=== PATIENT | male | born 1945 | race Caucasian/White ===

== ENCOUNTER 2016-12-15 18:02 | Inpatient (IN) | payer BC, MEDICARE, OTHER ==
[2016-12-15] MEDS ORDERED: HYDROmorphone 0.5 MG/0.5 ML Syringe IVPUSH ONE (18:17)
[2016-12-15] MEDS ORDERED: Sodium Chloride 0.9% 1,000 ML IV SCH (18:30)
--- NOTE | 2016-12-15 18:33 | EDM.PDOC ---
<Pat Thakkar - Last Filed: 12/15/16 18:27> ED HPI GI/ABDOMINAL - General Chief Complaint: Chest Pain Stated Complaint: MED VIA TRI-C Time Seen by Provider: 12/15/16 18:27 Source: Reports: Patient, EMS notes reviewed, Family History Limitations: Reports: No limitations - History of Present Illness INITIAL COMMENTS - FREE TEXT/NARRATIVE: pt arrived with a episode of being very diaphoretic and having a bp in the 90s. He gave a history of a fall 4 days ago and he landed on his left rib cage. He has pain in his lateral lower left ribs. He has been having pain in the ribs. He states today he started having alot more pain and he got very sweaty and became nauseated. Timing/Duration: Reports: Hour(s):, Getting worse, Other ( sweaty and left sided pain. ) Location: [facility] Quality: Reports: stabbing, throbbing Associated Symptoms: Reports: chest pain, nausea/vomiting, other ( Pt had pain in the left chest where he hit the table with his side. ) - Related Data Allergies/ADRs: Allergies Allergy/AdvReac Type Severity Reaction Status Date / Time ezetimibe [From Zetia] Allergy Intermediate Anxiety Verified 08/19/14 19:30 amoxicillin Allergy Nausea Verified 12/15/16 18:21 Jgehyoh-Qon-Tsd Reductase Allergy Muscle Verified 12/15/16 18:21 Inhibitor Weakness Home Meds: Home Meds Aspirin [[place] Aspirin] 81 mg PO DAILY 11/20/13 [History] Metoprolol Tartrate 12.5 mg PO BID 11/20/13 [History] Multivitamin [Multi-Vitamin Daily] 0.5 each PO BID 11/20/13 [History] Naproxen Sodium 220 mg PO BID 11/20/13 [History] Rosuvastatin [Crestor] 1 tab PO BID 11/20/13 [History] Sildenafil Citrate [Viagra] 1 tab PO ASDIRECTED PRN 11/20/13 [History] Clopidogrel Bisulfate [Plavix] 75 mg PO DAILY 12/15/16 [History] Pantoprazole [Protonix] 40 mg PO DAILY 12/15/16 [History] Ranitidine [Zantac] 300 mg PO BID 12/15/16 [History] Social & Family History - Tobacco Use Smoking Status *Q: Unknown Ever Smoked Second Hand Smoke Exposure: No - Alcohol Use Days Per Week of Alcohol Use: 0 Number of Drinks Per Day: 1 Total Drinks Per Week: 0 - Recreational Drug Use Recreational Drug Use: No ED ROS GENERAL - Review of Systems Review Of Systems: See Below Constitutional: Reports: diaphoresis HEENT: Reports: No symptoms Respiratory: Reports: other (pain in his left chest) Cardiovascular: Reports: Blood pressure problem, Other (Pt had a low pressure when the ambulance arrived. He also had o2 sats in the mid 80s. ) Endocrine: Reports: no symptoms GI/Abdominal: Reports: Abdominal pain, Nausea, Vomiting : Reports: no symptoms Musculoskeletal: Reports: other (pain in the left rib with palpation. Pt also has pain in the left upper abdoman. ) Skin: Reports: no symptoms ED EXAM, GI/ABD - Physical Exam Exam: See Below Text/Narrative:: pt states he became very sweaty and he had pain in the ribs on the left side. He did not have ny other chest pain. This was different than when he has had heart pain in the past. He was nauseated and he did vomit. Exam Limited By: No limitations General Appearance: alert, moderate distress, other (pt was quite pale in appearance. ) Eyes: bilateral: normal appearance, EOMI Ears: normal TMs Nose: normal inspection Throat/Mouth: Normal inspection Head: atraumatic Neck: normal inspection Respiratory/Chest: other (pt is tender in the left chest when his ribs are palpated. ) Cardiovascular: regular rate, rhythm, other (rate is in the 60s. ) GI/Abdominal: other (pt is tender in the left upper abdoman. ) Rectal (Males) Exam: Deferred Back Exam: normal inspection Extremities: normal inspection Neurological: alert, oriented, other (pt hd a previous stroke in . ) Psychiatric: normal affect, anxious Course - Vital Signs Last Recorded V/S: Last Vital Signs Temp 35.9 C 12/15/16 18:08 Pulse 58 L 12/15/16 19:48 Resp 14 12/15/16 19:48 BP 110/66 12/15/16 19:48 Pulse Ox 93 L 12/15/16 19:48 - Orders/Labs/Meds Orders: Active Orders 24 hr Category Date Time Status Chest 1V Frontal [CR] Stat Exams 12/15/16 18:03 Taken Chest Abdomen Pelvis w Cont [CT] Stat Exams 12/15/16 18:18 Taken UA W/MICROSCOPIC [URIN] Urgent Lab 12/15/16 18:02 Uncollected Sodium Chloride 0.9% [Normal Saline] 1,000 ml Med 12/15/16 18:30 Active IV ASDIRECTED Sodium Chloride 0.9% [Saline Flush] Med 12/15/16 18:41 Active 10 ml FLUSH ONETIME PRN Medication Orders Sodium Chloride (Normal Saline) 1,000 mls @ 400 mls/hr IV ASDIRECTED JC Last Admin: 12/15/16 19:49 Dose: 400 mls/hr Sodium Chloride (Saline Flush) 10 ml FLUSH ONETIME PRN PRN Reason: PER RADIOLOGY PROTOCOL Last Admin: 12/15/16 18:58 Dose: 10 ml Labs: Laboratory Tests 12/15/16 12/15/16 12/15/16 Range/Units 18:06 18:06 18:06 WBC 16.4 H (4.5-11.0) K/uL RBC 3.73 L (4.30-5.90) M/uL Hgb 11.7 L D (12.0-15.0) g/dL Hct 35.4 L (40.0-54.0) % MCV 95 (80-98) fL MCH 31 (27-31) pg MCHC 33 (32-36) % Plt Count 220 (150-400) K/uL Neut % (Auto) 71 H (36-66) % Lymph % (Auto) 18 L (24-44) % [place]er % (Auto) 9 H (2-6) % Eos % (Auto) 3 (2-4) % Baso % (Auto) 0 (0-1) % Sodium 141 (140-148) mmol/L Potassium 4.3 (3.6-5.2) mmol/L Chloride 106 (100-108) mmol/L Carbon Dioxide 28 (21-32) mmol/L Anion Gap 6.8 (5.0-14.0) mmol/L BUN 21 H (7-18) mg/dL Creatinine 1.4 H (0.8-1.3) mg/dL Est Cr Clr Drug Dosing 47.50 mL/min Estimated GFR (MDRD) 50 L (>60) Glucose 150 H (74-106) mg/dL Calcium 8.2 L (8.5-10.1) mg/dL Total Bilirubin 0.3 (0.2-1.0) mg/dL AST 28 (15-37) U/L ALT 33 (12-78) U/L Alkaline Phosphatase 54 (46-116) U/L Creatine Kinase (39-308) U/L Troponin I 0.047 (0.000-0.056) ng/mL Total Protein 6.4 (6.4-8.2) g/dL Albumin 3.7 (3.4-5.0) g/dL Globulin 2.7 (2.3-3.5) g/dL Albumin/Globulin Ratio 1.4 (1.2-2.2) 12/15/16 Range/Units 18:06 WBC (4.5-11.0) K/uL RBC (4.30-5.90) M/uL Hgb (12.0-15.0) g/dL Hct (40.0-54.0) % MCV (80-98) fL MCH (27-31) pg MCHC (32-36) % Plt Count (150-400) K/uL Neut % (Auto) (36-66) % Lymph % (Auto) (24-44) % Wagoner % (Auto) (2-6) % Eos % (Auto) (2-4) % Baso % (Auto) (0-1) % Sodium (140-148) mmol/L Potassium (3.6-5.2) mmol/L Chloride (100-108) mmol/L Carbon Dioxide (21-32) mmol/L Anion Gap (5.0-14.0) mmol/L BUN (7-18) mg/dL Creatinine (0.8-1.3) mg/dL Est Cr Clr Drug Dosing mL/min Estimated GFR (MDRD) (>60) Glucose (74-106) mg/dL Calcium (8.5-10.1) mg/dL Total Bilirubin (0.2-1.0) mg/dL AST (15-37) U/L ALT (12-78) U/L Alkaline Phosphatase (46-116) U/L Creatine Kinase 216 (39-308) U/L Troponin I (0.000-0.056) ng/mL Total Protein (6.4-8.2) g/dL Albumin (3.4-5.0) g/dL Globulin (2.3-3.5) g/dL Albumin/Globulin Ratio (1.2-2.2) Meds: Medications Generic Name Dose Route Start Last Admin Trade Name Freq PRN Reason Stop Dose Admin Sodium Chloride 1,000 mls @ 400 mls/hr 12/15/16 18:30 12/15/16 19:49 Normal Saline IV 400 mls/hr ASDIRECTED CJ Administration Sodium Chloride 10 ml 12/15/16 18:41 12/15/16 18:58 Saline Flush FLUSH 10 ml ONETIME PRN Administration PER RADIOLOGY PROTOCOL Discontinued Medications Generic Name Dose Route Start Last Admin Trade Name Freq PRN Reason Stop Dose Admin Hydromorphone HCl 0.5 mg 12/15/16 18:17 Dilaudid IVPUSH 12/15/16 18:18 ONETIME ONE Sodium Chloride 80 mls @ 3 mls/sec 12/15/16 18:41 12/15/16 18:58 Normal Saline IV 12/15/16 18:42 3 mls/sec ONETIME ONE Administration Iopamidol 100 ml 12/15/16 18:41 12/15/16 18:58 Isovue-300 (61%) IV 12/15/16 18:42 100 ml . DIRECTED PRN Administration RADIOLOGY EXAM - Re-Assessments/Exams Free Text/Narrative Re-Assessment/Exam: 12/15/16 18:40 ekg is unchanged from his old ekg. His trop is .047. His hg is 11.6. He continues to have more abdomanal concerns. 12/15/16 18:42 Departure - Departure Disposition: Admitted As Inpatient 67 Clinical Impression: Moderate laceration of spleen Forms: ED Department Discharge <Damir Grajeda - Last Filed: 12/15/16 20:04> Course - Re-Assessments/Exams Free Text/Narrative Re-Assessment/Exam: 12/15/16 19:57 This patient was received from Dr. Thakkar at approximately 1830. He fell 5 days ago in a restaurant when he tripped he fell against a table hit his lower chest against the table. Tonight he had an episode where he became nauseated and diaphoretic. He thought it might be his heart. He wound up taking some nitroglycerin. He had an episode where he seemed to pass out. EMS gave him some fluids and brought his pressures up. Dr. Thakkar noted that he had a tender left upper quadrant. She suspects a splenic rupture. CT was done of the chest and abdomen which showed a splenic laceration there is some hemoperitoneum there is a pseudoaneurysm or extravasation from the spleen and that her some blood around the liver. The patient has remained hemodynamically stable though blood pressure is a little bit low. I spoke with Dr. Melendez the surgeon and he will be admitted to his service for close observation. We'll type and cross him for 2 units of packed cells. Departure - Departure Time of Disposition: 20:02 Condition: fair
[2016-12-15] MEDS ORDERED: Sodium Chloride 0.9% 80 ML IV ONE (18:41)
[2016-12-15] MEDS ORDERED: Iopamidol 612 MG/ML 100 ML Bottle IV PRN (18:41)
[2016-12-15] MEDS: Sodium Chloride 0.9% 10 ML Syringe FLUSH PRN ×2 (18:58→20:01)
[2016-12-15] MEDS ORDERED: Naloxone 0.4 MG/ML SDV IVPUSH PRN (22:06)
[2016-12-15] MEDS ORDERED: Dextrose 5%-Lactated Ringers 1,000 ML IV SCH (22:15)
[2016-12-15] MEDS: HYDROmorphone/Normal Saline 15 MG/30 ML PCA IV PRN (22:17)
[2016-12-15] MEDS: Ondansetron 4 MG/2 ML SDV IVPUSH PRN (22:18)
[2016-12-15] MEDS ORDERED: Lactated Ringers 500 ML IV ONE (22:45)
[2016-12-15] MEDS ORDERED: Rocuronium 50 MG/5 ML Vial ONE (23:09)
[2016-12-15] MEDS ORDERED: fentaNYL 250 MCG/5 ML SDV ONE (23:09)
[2016-12-15] MEDS ORDERED: Dexamethasone 4 MG/ML SDV ONE (23:09)
[2016-12-15] MEDS ORDERED: Propofol 200 MG/20 ML SDV ONE (23:09)
[2016-12-15] MEDS ORDERED: Ondansetron 4 MG/2 ML SDV ONE (23:09)
[2016-12-15] MEDS ORDERED: Neostigmine Methylsulfate 1 MG/ML 5 ML Syringe ONE (23:09)
[2016-12-15] MEDS ORDERED: Succinylcholine/Normal Saline 200 MG/10 ML Syringe ONE (23:09)
[2016-12-15] MEDS ORDERED: ceFAZolin 1 GM Vial ONE (23:45)
[2016-12-15] MEDS ORDERED: ePHEDrine 50 MG/ML SDV ONE (23:50)
[2016-12-15] MEDS ORDERED: Sodium Chloride 0.9% 10 ML ONE (23:50)
[2016-12-16] MEDS ORDERED: Lactated Ringers 1,000 ML ONE ×2 (00:14)
[2016-12-16] MEDS ORDERED: hydrOXYzine HCl 50 MG/ML SDV IM ONE (01:35)
[2016-12-16] MEDS ORDERED: Pantoprazole 40 MG Vial IV SCH (02:00)
[2016-12-16] MEDS ORDERED: Dextrose 5%-Lactated Ringers 1,000 ML IV SCH (02:30)
[2016-12-16] MEDS ORDERED: ceFAZolin 2 GM in Premix Bag 1 BAG IV SCH (03:00)
[2016-12-16] MEDS ORDERED: ceFAZolin 2 GM in Premix Bag 1 BAG IV ONE (03:09)
[2016-12-16] MEDS: Metoprolol Tartrate 25 MG Tab PO SCH ×3 (05:28→21:31)
[2016-12-16] MEDS ORDERED: hydrOXYzine HCl 50 MG/ML SDV IM PRN (05:30)
[2016-12-16] MEDS ORDERED: Naloxone 0.4 MG/ML SDV IV PRN (07:47)
--- NOTE | 2016-12-16 09:53 | CR ---
Portable chest Comparison: 2008. Shallow lung volumes are demonstrated. The patient has had a prior sternotomy. Heart and vascular st ructures are stable. There are no acute findings. Impression: 1. No acute changes.
[2016-12-16] MEDS: Magnesium Sulfate/Water 2 GM in Premix Bag 1 BAG IV SCH ×3 (09:56→21:31)
[2016-12-16] MEDS: Ondansetron 4 MG/2 ML SDV IVPUSH PRN (12:09)
[2016-12-16] MEDS: ceFAZolin 2 GM in Sodium Chloride 0.9% 50 ML IV SCH ×2 (12:09→18:37)
[2016-12-16] MEDS: Pantoprazole 40 MG Vial IV SCH (21:31)
[2016-12-17] MEDS: Dextrose 5%-Lactated Ringers 1,000 ML IV SCH ×2 (01:33→22:16)
[2016-12-17] MEDS: Magnesium Sulfate/Water 2 GM in Premix Bag 1 BAG IV SCH ×4 (04:06→22:15)
[2016-12-17] MEDS ORDERED: Furosemide 20 MG/2 ML VIAL IVPUSH ONE (09:00)
--- NOTE | 2016-12-17 09:10 | PN ---
DATE OF SERVICE: 12/17/2016 SUBJECTIVE: Johnny is postop day one. He remains to be n.p.o. He states his pain is controlled. Vital signs have been stable. Hemoglobin this morning is 8. REVIEW OF SYSTEMS: Remainder of review of systems negative for any pertinent positives and negatives. OBJECTIVE: GENERAL: Johnny Sparks is a 71-year-old male. He is alert and orientated, color pale. VITAL SIGNS: TPR is 98.1 98, 17. Blood pressure 119/66. HEENT: Negative. NECK: Supple. HEART: Regular rate and rhythm. LUNGS: Clear. ABDOMEN: Dressing dry and intact. Abdominal binder is on. EXTREMITIES: Without peripheral edema and SCDs are on. ASSESSMENT: Postop day 1 following exploratory laparotomy with splenectomy, removal of mesh, incisional hernia repair, and liver resection. PLAN: 1. Continue to be n.p.o., ice chips only. 2. Dulcolax 2 tabs b.i.d. p.o. 3. One unit of packed red blood cells now. 4. Lasix 20 mg after packed red blood cells are in. 5. Check CBC, BMP, Mag, phos in a.m. 6. Schuster can be removed. 7. We will evaluate p.r.n. or in a.m. Kelley Hurtado PA-C /[id number]
--- NOTE | 2016-12-17 09:16 | PN ---
DATE OF SERVICE: 12/16/2016 The patient has been hemodynamically stable overnight. His hemoglobin dropped a little bit from one what had been at baseline. Urine output has been satisfactory. We will leave the Schuster catheter in today. Otherwise, he will be transferred to second floor but will probably be in ICU as a medical overflow patient. Magnesium is somewhat low and we will begin replacing that. The aspirin and Plavix, I think, won't restart again until tomorrow. We will start the metoprolol orally today, otherwise keep him n.p.o. except ice chips, and get him up and moving as the day goes by. Toni Melendez MD /[id number]
[2016-12-17] MEDS: Metoprolol Tartrate 25 MG Tab PO SCH ×2 (09:49→20:24)
[2016-12-17] MEDS: Bisacodyl 5 MG Tab PO SCH ×2 (09:49→20:22)
[2016-12-17] MEDS: Aspirin 81 MG Tab.EC PO SCH (09:49)
[2016-12-17] MEDS: Clopidogrel 75 MG Tab PO SCH (09:49)
[2016-12-17] MEDS: Pantoprazole 40 MG Vial IV SCH (20:22)
[2016-12-18] MEDS: Magnesium Sulfate/Water 2 GM in Premix Bag 1 BAG IV SCH ×4 (03:51→22:49)
[2016-12-18] MEDS: HYDROmorphone/Normal Saline 15 MG/30 ML PCA IV PRN (07:19)
[2016-12-18] MEDS: Bisacodyl 5 MG Tab PO SCH ×2 (09:33→20:58)
[2016-12-18] MEDS: Metoprolol Tartrate 25 MG Tab PO SCH ×2 (09:35→20:58)
[2016-12-18] MEDS: Aspirin 81 MG Tab.EC PO SCH (09:35)
[2016-12-18] MEDS: Clopidogrel 75 MG Tab PO SCH (09:36)
[2016-12-18] MEDS: Potassium Phosphates 15 MMOLE, Lidocaine 1% 2 ML in Sodium Chloride 0.9% 150 ML IV SCH ×3 (12:16→19:48)
[2016-12-18] MEDS: Pantoprazole 40 MG Vial IV SCH (20:59)
[2016-12-19] MEDS: Magnesium Sulfate/Water 2 GM in Premix Bag 1 BAG IV SCH (04:17)
[2016-12-19] MEDS ORDERED: Sodium Chloride 0.9% 10 ML Syringe IV PRN (07:56)
[2016-12-19] MEDS ORDERED: Potassium Chloride 20 MEQ Tab.ER PO ONE (09:00)
[2016-12-19] MEDS: Metoprolol Tartrate 25 MG Tab PO SCH ×2 (09:05→21:16)
[2016-12-19] MEDS: Aspirin 81 MG Tab.EC PO SCH (09:05)
[2016-12-19] MEDS: Clopidogrel 75 MG Tab PO SCH (09:06)
[2016-12-19] MEDS: Docusate Sodium 100 MG Cap PO SCH ×2 (09:06→21:08)
[2016-12-19] MEDS ORDERED: Furosemide 20 MG/2 ML VIAL IVPUSH ONE (11:00)
--- NOTE | 2016-12-19 12:00 | PN ---
DATE OF SERVICE: 12/18/2016 The patient has been afebrile with stable vital signs. Urine output has been satisfactory. He is passing little bit of flatus. No bowel movement as of yet. He is on a full liquid diet, starting relatively slowly. His phosphate is low and potassium phosphate today. Otherwise, we will have him get the shower and maximize activity and work with pulmonary toilet. Toni Melendez MD /[id number]
--- NOTE | 2016-12-19 16:47 | PN ---
DATE OF SERVICE: 12/19/2016 The patient has been afebrile with stable vital signs. He moved his bowels this morning. We pain medication. Hemoglobin is 8. We will give him 1 unit of packed RBCs, given some underlying cardiovascular disease and he may be ready for discharge home tomorrow. Toin Melendez MD /[id number]
[2016-12-19] MEDS: Pantoprazole 40 MG Vial IV SCH (21:10)
[2016-12-19] MEDS: Acetaminophen/oxyCODONE 325-5 MG Tab PO PRN (21:28)
[2016-12-20 07:46] VITALS: BP 151/69
[2016-12-20] MEDS: Docusate Sodium 100 MG Cap PO SCH (08:38)
[2016-12-20] MEDS: Metoprolol Tartrate 25 MG Tab PO SCH (08:38)
[2016-12-20] MEDS: Aspirin 81 MG Tab.EC PO SCH (08:38)
[2016-12-20] MEDS: Clopidogrel 75 MG Tab PO SCH (08:39)
[2016-12-20] MEDS: Acetaminophen/oxyCODONE 325-5 MG Tab PO PRN (08:40)
--- NOTE | 2016-12-21 04:01 | DISCH ---
ADMISSION DIAGNOSES: 1. Left rib pain. 2. Diaphoresis. 3. Fall four days prior to going into the emergency room. 4. Moderate laceration of spleen and liver laceration. DISCHARGE DIAGNOSIS: Exploratory laparotomy with splenectomy, removal of mesh, repair of incisional hernia repair and liver resection for ruptured spleen, and incisional hernia. Date of surgery 12/15/2016. HISTORY: Johnny Sparks is a 71-year-old male who presented to the emergency room, diaphoretic and pain in his left rib cage. He had fallen at home 4 days ago and hit the edge of a table. After, he was admitted to [facility] and became very diaphoretic and was taken to the operating room, and had the above procedure. Johnny was in ICU for 24 hours and transferred back to [facility]. HOSPITAL COURSE: Vital signs remained stable. His pain was well managed. His diet was advanced. His activity was good. He did receive 2 units of packed red blood cells for hemoglobin of 9. He was able to be discharged to home on 12/20/2016. PHYSICAL EXAMINATION: GENERAL: Johnny is a 71-year-old male. Height 5 feet 11 inches, weight is 218 pounds. VITAL SIGNS: TPR is 98.2, 95, 20, blood pressure 151/69. HEENT: Negative. NECK: Supple. HEART: Regular rate and rhythm. LUNGS: Clear. ABDOMEN: [place] in place. Abdominal binder is on. EXTREMITIES: Without peripheral edema. 4x4s over ADRIAN drain sites. DISPOSITION: Discharged to home. CONDITION: Stable and improving. FOLLOWUP: Kelley Hurtado PA-C, on Tuesday12/24/2016 at 9:00 a.m. Check CBC at 0800. Give immunosuppressant immunizations appropriate for post splenectomy. HOME MEDICATION: 1. Percocet 5/325 mg 1 to 2 every 4 hours p.r.n. pain #50. 2. Aspirin 81 mg p.o. daily. 3. Plavix 75 mg p.o. daily. 4. Colace 100 mg oral twice daily. 5. Metoprolol tartrate (Lopressor) 12.5 mg every 12 hours. 6. Lisinopril 10 mg oral daily. 7. Multivitamin 0.5 each oral twice daily. 8. Naprosyn 220 mg oral twice daily. 9. Protonix 40 mg daily. 10.Zantac 300 mg oral twice daily. 11.Crestor 1 tablet oral twice daily. 12.Viagra one tab as directed p.r.n. DISCHARGE INSTRUCTIONS: Diet after discharge: Regular diet as tolerated. Drink 8 to 10 glasses of water a day. Activity: As tolerated. No lifting greater than 10 pounds for 6 weeks. Driving, do not drive on pain medication. Shower bathing, may shower. Keep site clean and dry. Wear abdominal binder for 6 weeks and then as tolerated. Notify provider of fever, increased pain, swelling, redness, drainage, nausea, or vomiting. Use incentive spirometer 10 times every hour while awake.
--- NOTE | 2017-01-15 19:16 | OR ---
DATE OF PROCEDURE: 12/16/2016 PREOPERATIVE DIAGNOSIS: Rupture associated with ongoing extravasation and a large perisplenic hematoma. POSTOPERATIVE DIAGNOSES: 1. Splenic laceration with ongoing intraperitoneal bleeding, large perisplenic hematoma. 2. Laceration of the lateral aspect of the left lobe of the liver. 3. Recurrent incisional hernia. 4. Intraperitoneal mesh obscuring exposure to upper abdomen. OPERATIVE PROCEDURE: Exploratory of laparotomy with: 1. Splenectomy (81090). 2. Resection of portion of the left lobe of liver (31458). 3. Removal of intraperitoneal mesh (87066). 4. Repair of the recurrent incisional hernia (39658). ANESTHESIA: General. INDICATION FOR PROCEDURE: The patient is 71-year-old who roughly four days ago, fell on the table on his left rib area and he presented to the emergency room today after developing some diaphoresis and hypotension. CT scan was obtained, which showed a large perisplenic hematoma along with a splenic injury and there appeared to be some extravasation from the splenic arterial vessels. The patient is also strikingly quite tender and given this, the plan would be to proceed with exploratory laparotomy followed by splenectomy repair; however, other injuries might be identified. The patient does have a recurrent incisional hernia in the area previously repaired hernia with mesh. Potential risks of the procedure were reviewed with the patient and family were present and they wish to proceed. DETAILS OF THE PROCEDURE: The patient was taken to the operating room and after general endotracheal anesthesia was induced, a Schuster catheter was inserted along the gastric tube, and the abdomen prepped and draped. Upper midline incision was made and carried down through the skin and subcutaneous tissue. The area of herniation was identified and this was dissected free. The previous intraperitoneal mesh was obscuring the exposure at this time and this was removed as in this setting there was pretty fairly high likelihood of being infected and removed by means of traction and cautery. Attention was taken to the area of the splenic injury. Large hematoma measuring about a liter was then evacuated. The patient, in addition to the splenic injury, was noted to have a laceration more or less between the segments of II and III in the left lobe of the liver. At this point, the spleen was mobilized upward after division of the attachments of the diaphragm and the splenic flexure of the colon. Once this was immobilized upward of the splenic hilum and adjacent gastrojejunostomy were divided with a series of WATSON vascular loads, and spleen was delivered from the field. At this point, packing was placed into the splenic fossa. The liver was noted have some wheezing as well and the lateral 2/3rd of the portion of the consisting of segments II and III was then excised using a WATSON staplers adequately control the area of concern and at that point, no bleeding or bile leaks were seen from that area. The abdomen was then inspected. No additional abnormalities were noted to be present as the pancreas specifically did not appear to be injured. The vascular staple lines at the splenic fossa and the edge of the liver the staple lines were reinforced with a fibrin sealant and at that point, 2 Shashank-Phillips drains were placed through stab wounds in the left upper quadrant and placed in the splenic bed and also passing by the liver staple line. At this point, the incision was closed with #2 Vicryl stitch. This includes repair of recurrent incisional hernia. The subcutaneous tissue was approximated with some 4-0 Vicryl stitch and the skin closed with makayla. Dressing was applied. The patient was taken to the recovery room in a satisfactory condition. There were no evident complications. Toni Melendez MD /[id number]
== END 2016-12-20 10:15 | disposition home or self-care (01) | DRG 800 ==
LOC: JP.ED 18:02 → JP.2SS 19:55 → JP.ICU 12-16 02:24 → JP.MS 12-16 06:55 → JP.ICU 12-16 06:55 → JP.2SS 12-16 11:18
PROVIDERS: ADMIT Surgery; ATTEND Surgery
PROC: 0WQF0ZZ Repair Abdominal Wall, Open Approach (ICD-10-PCS; principal; 2016-12-15)
PROC: 0WPF0JZ Removal of Synthetic Substitute from Abdominal Wall, Open Approach (ICD-10-PCS; principal; 2016-12-15)
PROC: 07TP0ZZ Resection of Spleen, Open Approach (ICD-10-PCS; principal; 2016-12-15)
PROC: 30233N1 Transfusion of Nonautologous Red Blood Cells into Peripheral Vein, Percutaneous Approach (ICD-10-PCS; 2016-12-17)
PROC: 30233N1 Transfusion of Nonautologous Red Blood Cells into Peripheral Vein, Percutaneous Approach (ICD-10-PCS; 2016-12-19)
DX: S36.031A Moderate laceration of spleen, initial encounter (principal); S36.113A Laceration of liver, unspecified degree, initial encounter; S36.029A Unspecified contusion of spleen, initial encounter; W18.09XA Striking against other object with subsequent fall, initial encounter; Y92.511 Restaurant or cafe as the place of occurrence of the external cause; K43.2 Incisional hernia without obstruction or gangrene; R61 Generalized hyperhidrosis; R07.89 Other chest pain; Z86.73 Personal history of transient ischemic attack (TIA), and cerebral infarction without residual deficits; Z79.82 Long term (current) use of aspirin; Z88.1 Allergy status to other antibiotic agents; Z88.8 Allergy status to other drugs, medicaments and biological substances; D64.9 Anemia, unspecified
CPT/HCPCS: 36415; 36430; 71010; 71010-26; 71260; 74177; 80048; 80053; 81001; 82150; 82550; 83735; 83880; 84100; 84484; 85025; 85027; 86850; 86900; 86901; 86920; 86922; 88302; 88305; 88307; 88313; 93005; 93010; 94762; 96361; 96374; 99285; 99285-25; A9270-GY; C9113; J0690; J1100; J1170; J1940; J2405; J2704; J3010; J3410; J3475; J3490; J7030; J7040; J7042; J7050; J7120; P9016; Q9967

== ENCOUNTER 2022-06-16 16:46 | Emergency (ER) | payer OTHER ==
[2022-06-16 17:07] VITALS: BP 126/64; PULSE 58
== END 2022-06-16 19:31 | disposition home or self-care (01) ==
LOC: JP.ED 16:46
DX: S20.212A Contusion of left front wall of thorax, initial encounter (principal); I25.10 Atherosclerotic heart disease of native coronary artery without angina pectoris; K21.9 Gastro-esophageal reflux disease without esophagitis; M19.90 Unspecified osteoarthritis, unspecified site; I25.2 Old myocardial infarction; Z95.5 Presence of coronary angioplasty implant and graft; Z88.0 Allergy status to penicillin; Z88.8 Allergy status to other drugs, medicaments and biological substances; Z79.899 Other long term (current) drug therapy; Z79.82 Long term (current) use of aspirin; Z79.01 Long term (current) use of anticoagulants; Z95.1 Presence of aortocoronary bypass graft; Z86.73 Personal history of transient ischemic attack (TIA), and cerebral infarction without residual deficits; V29.9XXA Motorcycle rider (driver) (passenger) injured in unspecified traffic accident, initial encounter
CPT/HCPCS: 71250; 99284

== ENCOUNTER 2022-10-18 10:18 | Emergency (ER) | payer OTHER ==
[2022-10-18] MEDS ORDERED: Metoclopramide 10 MG/2 ML SDV IVPUSH ONE (10:35)
[2022-10-18 10:57] LABS: ESTIMATED GFR 78 mL/min (>60)
[2022-10-18] MEDS ORDERED: Acetaminophen 500 MG Tab PO ONE (11:13)
[2022-10-18] MEDS ORDERED: amLODIPine 5 MG Tab PO ONE (11:15)
[2022-10-18] MEDS ORDERED: Ondansetron 4 MG Tab.DIS PO ONE (11:16)
[2022-10-18] MEDS ORDERED: HYDROmorphone 0.5 MG/0.5 ML Syringe IVPUSH ONE (11:50)
[2022-10-18] MEDS ORDERED: EPINEPHrine 1:10,000 1 MG/10 ML Syringe IV ONE ×3 (13:50→13:59)
[2022-10-18] MEDS ORDERED: Etomidate 2 MG/ML 10 ML SDV IV ONE (14:00)
[2022-10-18] MEDS ORDERED: Norepinephrine Bit/D5W Premix 4 MG in Premix Bag 1 BAG IV SCH (14:21)
[2022-10-18] MEDS ORDERED: Norepinephrine Bit/D5W Premix 250 ML ONE (14:21)
[2022-10-18 14:24] LABS: TROPONIN I HIGH SENSITIVITY 11.2 pg/mL (<=60.3)
[2022-10-18] MEDS ORDERED: propofoL 100 ML IV SCH (14:30)
[2022-10-18] MEDS ORDERED: Sodium Chloride 0.9% 10 ML Syringe FLUSH PRN (15:03)
[2022-10-18] MEDS ORDERED: Sodium Chloride 0.9% 75 ML IV SCH (15:15)
[2022-10-18] MEDS ORDERED: Iopamidol 755 Mg/ML 100 ML Bottle IV SCH (15:15)
[2022-10-18] MEDS ORDERED: levETIRAcetam in NaCl (iso-os) 1,500 MG in Premix Bag 100 BAG IV ONE ×2 (16:46)
[2022-10-18] MEDS ORDERED: Sodium Chloride 3% 500 ML IV SCH (17:00)
[2022-10-18 18:16] VITALS: PULSE 95
[2022-10-18 18:28] VITALS: BP 102/66
== END 2022-10-18 18:38 ==
LOC: JP.ED 10:18
DX: I21.09 ST elevation (STEMI) myocardial infarction involving other coronary artery of anterior wall (principal); I25.10 Atherosclerotic heart disease of native coronary artery without angina pectoris; I63.9 Cerebral infarction, unspecified; I10 Essential (primary) hypertension; E78.00 Pure hypercholesterolemia, unspecified; I25.2 Old myocardial infarction; K21.9 Gastro-esophageal reflux disease without esophagitis; Z20.822 Contact with and (suspected) exposure to COVID-19; Z88.0 Allergy status to penicillin; Z79.82 Long term (current) use of aspirin; Z79.01 Long term (current) use of anticoagulants; Z79.899 Other long term (current) drug therapy
CPT/HCPCS: 31500; 36415; 36600; 43752; 51702; 70450; 70496; 70498; 70551; 71045; 80048; 82803; 82947; 83880; 84484; 85025; 85610; 85730; 86140; 87635; 93005; 96365; 96366; 96375; 99285; A9270; J1170; J1953; J2704; J2765; J3490; J7131; Q0162; Q9967; J0171; U0002